=== PATIENT | female | born 1980 | race Caucasian/White ===

== ENCOUNTER 2017-05-28 09:51 | Day surgery (SDC) | payer BC ==
[2017-05-28] VITALS (12 sets, daily range): BP systolic 99–127; BP diastolic 60–72
[~2017-05-28] VITALS: Ht 172.7 cm; Wt 81.6 kg
[~2017-05-28 09:51] MED LIST: BUPR150T3 PO
[2017-05-28] MEDS ORDERED: LACTATED RINGERS 1000ML 1,000 ML IV ONE (09:57)
[2017-05-28] MEDS ORDERED: MIDAZOLAM HCL 1 MG/ML 2ML VIAL ONE ×2 (10:36→11:11)
[2017-05-28] MEDS ORDERED: LIDOCAINE PF 2% 5ML ABBOJECT ONE (11:10)
[2017-05-28] MEDS ORDERED: PROPOFOL 10 MG/ML 20ML VIAL IV ONE (11:11)
[2017-05-28] MEDS ORDERED: FENTANYL CITRATE PF 50 MCG/1 ML 2ML VIAL ONE (11:11)
[2017-05-28] MEDS ORDERED: BUPIVACAINE/PF 0.25% 30ML VIAL IJ ONE (11:35)
[2017-05-28] MEDS ORDERED: MEPERIDINE-PF 25 MG/ML SYG ONE ×2 (12:09→12:22)
[2017-05-28] MEDS ORDERED: CALDOLOR 800MG+NS 250ML 250 ML IV ONE (12:34)
== END 2017-05-28 13:45 | disposition home or self-care (01) ==
LOC: DAH 09:51
PROVIDERS: ATTEND Surgery
DX: T81.31XA Disruption of external operation (surgical) wound, not elsewhere classified, initial encounter (principal); L76.34 Postprocedural seroma of skin and subcutaneous tissue following other procedure; Y83.8 Other surgical procedures as the cause of abnormal reaction of the patient, or of later complication, without mention of misadventure at the time of the procedure; Z98.51 Tubal ligation status; Z98.890 Other specified postprocedural states
CPT/HCPCS: 10140; 13160; 96374; A4450; A4452; A4930; J1741; J2001; J2175 ×2; J2250 ×2; J2704; J3010; J3490; J7120